=== PATIENT | male | born 1985 | race Two or more races ===

== ENCOUNTER 2020-05-26 00:59 | Emergency (ER) | payer MEDICAID, OTHER ==
[~2020-05-26] VITALS: Ht 175.3 cm; Wt 98.4 kg
[2020-05-26 04:30] LABS: Basophils # (auto) 0.1 10 ^3/uL (0-0.2); Basophils % (auto) 0.6 % (0.0-2.0); Eosinophils # (auto) 0 10 ^3/uL (0-0.8); Eosinophils % (auto) 0.2 % (0.0-7.0); Hematocrit 42.4 % (41.0-53.0); Hemoglobin 14.8 g/dL (13.5-17.5); Lymphocytes # (auto) 1.1 10 ^3/uL (0.4-5.4); Mean Corpuscular Hemoglobin 29.6 pg (28.0-32.0); Mean Corpuscular Hgb Conc. 34.9 g/dL (32.0-36.0); Mean Corpuscular Volume 84.8 fL (80.0-100.0); Monocytes # (auto) 0.4 10 ^3/uL (0-1.3); Monocytes % (auto) 5.1 % (0.0-12.0); Neutrophils # (auto) 6.9 10 ^3/uL (1.6-8.6); Neutrophils % (auto) 81.1 % (37.0-80.0); Nucleated Red Blood Cells % 0.2 %; Platelet Count (auto) 258 10^3/uL (140-450); Red Blood Cells 5.01 10^6/uL (4.5-5.90); Red Cell Distribution Width 13.6 % (11.8-14.3); White Blood Cell 8.5 10^3/uL (4.4-10.8)
[2020-05-26 04:45] LABS: Anion Gap 10 (5-15); Blood Urea Nitrogen 17 mg/dL (7-18); Calcium 8.8 mg/dL (8.5-10.1); Carbon Dioxide 25 mmol/L (21-32); Chloride 101 mmol/L (98-107); Glucose 159 mg/dL (74-106); Potassium 3.6 mmol/L (3.5-5.1); Salicylate < 1.7 mg/dL (2.8-20.0); Sodium 136 mmol/L (136-145)
[2020-05-26 04:47] LABS: Acetaminophen < 2.0 ug/mL (10-30); Alanine Aminotransferase 58 U/L (16-61); Aspartate Aminotransferase 40 U/L (15-37); BUN/Creatinine Ratio 20.2; Blood Alcohol < 3.0 mg/dL (0-5); GFR African American 136 mL/min; GFR Non-African American 113 mL/min
[2020-05-26 04:50] LABS: Alkaline Phosphatase 86 U/L (45-117); Bilirubin, Total 0.4 mg/dL (0.2-1.0); Total Protein 8.3 g/dL (6.4-8.2)
[2020-05-26 05:40] VITALS: BP 136/78
== END 2020-05-26 07:24 | disposition home or self-care (01) ==
LOC: ER 01:02 → EDBD 01:02 → ER 07:24
DX: T60.91XA Toxic effect of unspecified pesticide, accidental (unintentional), initial encounter (principal); R51.9 Headache, unspecified; R07.9 Chest pain, unspecified; R11.2 Nausea with vomiting, unspecified
CPT/HCPCS: 36415; 71045; 80053; 80320; 80329; 85025